=== PATIENT | female | born 1950 | race Caucasian/White ===

== ENCOUNTER 2022-10-28 00:37 | Emergency (ER) | payer BC, SELFPAY ==
[2022-10-28] VITALS (11 sets, daily range): BP systolic 135–160; BP diastolic 72–82; PULSE 76–83; RESP 16–18; TEMP 35.8; O2SAT 98–99; BMI 46.9
--- NOTE | 2022-10-28 00:52 | ED_ITS ---
HPI - General Adult General Chief complaint: Chest Pain Stated complaint: Chest Pain Time Seen by Provider: 10/28/22 00:40 Source: patient Mode of arrival: ambulatory History of Present Illness HPI narrative: 72-year-old female with no prior cardiac history presents to the emergency department with chest pain that started about 1 hour prior to arrival while at rest lying in bed. Substernal area, when she rolled over, it started radiating to the left chest. It is achy in nature and intermittent. There is no shortness of breath, no dizziness, no palpitations. She denies any prior history of similar symptoms but I review records and see that she was evaluated in June of 2020 with similar symptoms. No prior stress testing. There is no family history of premature coronary artery disease but she does have a family history of heart disease at typical ages. She is a nonsmoker. No difficulty breathing. No recent cough or illness. No reflux like symptoms. She is status post cholecystectomy. She cannot reproduce the pain with palpation. Her symptoms did not worsen on exertion. They are somewhat improved now. She does admit to increased stress regarding caring for her disabled son but denies any other recent changes. No new medications. No pertinent travel. No trauma or injury. She did take 1 adult aspirin prior to coming to the ED. She states her past medical history is benign, denies any major long-term health problems. She takes no long-term prescription medications. Sulfa allergy. Socially she is a nonsmoker and denies any alcohol intoxication. Family history notable for heart disease but not premature ages. ROS is notable only for the chest symptoms as described above, otherwise denies times 12 systems. Related Data Home Medications Medication Instructions Recorded Confirmed No Known Home Medications 10/28/22 10/28/22 Allergies Allergy/AdvReac Type Severity Reaction Status Date / Time Sulfa (Sulfonamide Allergy Severe Verified 10/28/22 00:54 Antibiotics) [facility] Surgical History (Updated 10/28/22 @ 01:21 by Leti Flores RN) History of cholecystectomy ?Z90.49 - Acquired absence of other specified parts of digestive tract (ICD- 10) Social History Smoking Status: Never smoker Do you use any of these nicotine containing products: None How often do you have a drink containing alcohol: never AUDIT-C Alcohol total score: 0 Exam Const: Vital Signs, click to edit/add: Vital Signs - 24 hr 10/28/22 00:46 10/28/22 00:50 10/28/22 01:00 Temperature 96.5 F L Pulse Rate 76 81 Pulse Rate [Pulse Oximeter] 83 Respiratory Rate 18 Blood Pressure Blood Pressure [Le ft Forearm] 160/74 H Blood Pressure [Le ft Upper Arm] 160/74 H Pulse Oximetry 98 98 Oxygen Delivery Me thod Room Air 10/28/22 01:01 10/28/22 01:02 10/28/22 01:17 Temperature Pulse Rate 80 77 Pulse Rate [Pulse Oximeter] Respiratory Rate 16 Blood Pressure 142/82 H 140/72 H Blood Pressure [Le ft Forearm] Blood Pressure [Le ft Upper Arm] Pulse Oximetry 99 98 Oxygen Delivery Me thod 10/28/22 01:31 10/28/22 01:46 10/28/22 02:01 Temperature Pulse Rate Pulse Rate [Pulse Oximeter] Respiratory Rate Blood Pressure 144/79 H 139/77 136/76 Blood Pressure [Le ft Forearm] Blood Pressure [Le ft Upper Arm] Pulse Oximetry Oxygen Delivery Me thod 10/28/22 02:16 10/28/22 02:31 Temperature Pulse Rate Pulse Rate [Pulse Oximeter] Respiratory Rate Blood Pressure 135/78 136/76 Blood Pressure [Le ft Forearm] Blood Pressure [Le ft Upper Arm] Pulse Oximetry Oxygen Delivery Me thod Documenting provider has reviewed patient's vital signs: yes Common normals: no apparent distress General appearance: cooperative and well kempt HENMT: Common normals: normocephalic Head and scalp: normocephalic Face and sinus: normal facial exam Mouth: oral and palatal mucosa normal Throat: posterior oropharynx normal Eye: Common normals: conjunctivae normal General eye: normal appearance of both eyes Conjunctiva: conjunctiva(e) normal Neck & C-Spine: Common normals: full ROM and no lymphadenopathy Chest: Common normals: inspection of chest normal and palpation of chest normal Resp: Common normals: normal respiratory effort, no use of accessory muscles and clear to auscultation bilaterally Effort & inspection: able to speak in complete sentences Auscultation: clear to auscultation bilaterally Cardio: Common normals: regular rate, regular rhythm, S1 normal heart sound, S2 normal heart sound and no murmurs Rate: regular rate Rhythm: regular rhythm Heart sounds: S1 normal and S2 normal GI: Common normals: Normal to inspection, nondistended, normoactive bowel sounds present, soft to palpation, non-tender, no hepatosplenomegaly and no masses Palpation: soft and no hepatosplenomegaly Extremity: Common normals: normal to inspection and no pedal edema Psych: Common normals: mental status grossly normal, thought process normal, cooperative and affect normal Appearance: well kempt Thought process: normal thought process Insight: insight good Judgement: judgment good Skin: Common normals: no rashes or lesions noted General skin exam: no rashes or lesions noted Course Vital Signs Vital signs: Initial Vital Signs Temperature 96.5 F L 10/28/22 00:46 Temperature Source Temporal Artery Scan 10/28/22 00:46 Pulse Rate 83 10/28/22 00:46 Respiratory Rate 18 10/28/22 00:46 Blood Pressure 160/74 H 10/28/22 00:46 Blood Pressure Mean 102 10/28/22 00:46 Blood Pressure Position Supine 10/28/22 00:46 Oxygen Delivery Method Room Air 10/28/22 00:46 Vital Signs Temperature 96.5 F L 10/28/22 00:46 Pulse Rate 83 10/28/22 00:46 Respiratory Rate 18 10/28/22 00:46 Blood Pressure 160/74 H 10/28/22 00:46 Oxygen Delivery Method Room Air 10/28/22 00:46 Temperature 96.5 F L 10/28/22 00:46 Pulse Rate 77 10/28/22 01:02 Respiratory Rate 16 10/28/22 01:01 Blood Pressure 136/76 10/28/22 02:31 Pulse Oximetry 98 10/28/22 01:02 Oxygen Delivery Method Room Air 10/28/22 00:46 Medical Decision Making MDM Narrative Medical decision making narrative: Substernal achy chest pain at rest, unlikely to be cardiac in nature. EKG is performed and is reassuring, unchanged from 2020. Recommend chest x-ray, basic blood work, cardiac monitoring and repeat troponin in 90 minutes. Will have been nearly 3 hours from onset at that point. No signs of arrhythmia. If reassuring, can likely be discharged home. Update: Normal findings reviewed with patient. Pain is improved. Repeat troponin also reassuring. All questions answered, recommend conservative management. Keep a symptom diary and follow up with primary care provider in 1- 2 weeks. Reviewed alarm symptoms that would warrant ED presentation. If she continues to have symptoms would recommend outpatient stress test. Lab Data Lab results reviewed: Yes I reviewed the patient's lab results Labs: Lab Results 10/28/22 10/28/22 Range/Units 00:48 02:24 WBC 6.68 (4.50-11.00) K/uL RBC 4.52 (4.00-5.20) m/uL Hgb 13.6 (12.0-16.0) gm/dL Hct 40.4 (33.0-51.0) % MCV 89 (80-100) fL MCH 30 (26-34) pg MCHC 34 (32-36) gm/dL RDW Coeff of [place] 12.7 (11.5-15.5) % Plt Count 258 (140-440) K/uL Neut % (Auto) 47.8 (42.0-72.0) % Lymph % (Auto) 42.4 (20-44) % [place] % (Auto) 7.5 (0.0-11.0) % Eos % (Auto) 1.8 (0.0-7.0) % Baso % (Auto) 0.4 (0.0-3.0) % Neut # (Auto) 3.19 (1.7-7.0) K/uL Lymph # (Auto) 2.83 (0.90-2.90) K/uL [place] # (Auto) 0.50 (0.00-0.90) K/UL Eos # (Auto) 0.12 (0.00-0.50) K/uL Baso # (Auto) 0.03 (0.00-0.30) K/uL Sodium 139 (135-149) mmol/L Potassium 3.7 (3.6-5.1) mmol/L Chloride 102 (96-114) mmol/L Carbon Dioxide 26 (20-32) mmol/L BUN 20 (7-30) mg/dL Creatinine 0.6 (0.5-1.5) mg/dL Estimated Creat Clear 43.30 Estimated GFR 97 ml/min Glucose 106 (60-115) mg/dL Calcium 9.2 (8.4-10.6) mg/dL Troponin I < 0.01 L (0.01-0.04) ng/mL C-Reactive Protein 0.7 (0.5-1.0) mg/dL NT-Pro-B Natriuret Pep 43 pg/mL POC Troponin I 0.01 0.00 L (0.01-0.04) ng/ml Imaging Data Chest x-ray: Attestation: I have reviewed the pertinent imaging results. My impression: Normal chest x-ray Radiologist's impression: IMPRESSION: 1. No acute cardiopulmonary disease is seen. ECG Data Attestation: I personally reviewed and interpreted this ECG as follows: Prior ECG tracings: available for review (Comparison 07/19/2020) Interpretation: Normal sinus rhythm, rate of 82. Normal axis. No significant ST or T-wave abnormalities. Unchanged from 2 years ago. Discharge Plan Discharge Clinical Impression: Chest pain Patient Disposition: Home w/ Parent or Adult Condition: Improved Instructions: Chest Pain (DC) Additional Instructions: There are no signs of any heart attack, blood clot, abnormal heart rhythm or other dangerous etiology today. This is all very good news. As we discussed, I am not certain as to what is causing her chest pain but there does not seem to be any emergent type cause. It is okay to continue Tylenol, using Tylenol p.m. if you cannot sleep. I would like for you to make a follow-up appointment with her primary care doctor in 1-2 weeks. If you are still experiencing symptoms, especially if on exertion, I would recommend that you the 2 of you coordinate a outpatient stress test. You may safely resume all typical activities. Activity Level: No Restrictions Discharge Diet: Regular Prescriptions: No Action No Known Home Medications Stand Alone Forms: [employer] Info Instructions
--- NOTE | 2022-10-28 01:04 | CRLHL7_ITS ---
For Patients: As a result of the Cures Act, medical imaging exams and procedure reports are released immediately into your electronic medical record. You may view this report before your referring provider. If you have questions, please contact your health care provider. INDICATION: Chest pain at rest, sternal TECHNIQUE: Chest radiograph 2 views COMPARISON: None FINDINGS: Mediastinum: The mediastinum is normal in appearance. The heart silhouette is normal in size and morphology. Lung: Both lungs are unremarkable in appearance. No sign of pleural effusion seen. No pneumothorax is identified. Bone and Soft tissue: Unremarkable for age. IMPRESSION: 1. No acute cardiopulmonary disease is seen. Dictated by: Esteban Gaines MD @ 10/28/2022 01:20:46 (Electronically Signed)
[2022-10-28 01:10] LABS: Troponin, Point-of-Care* 0.01 ng/ml (0.01-0.04)
[2022-10-28 01:12] LABS: Basophils Absolute Auto 0.03 K/uL (0.00-0.30); Basophils Percent Auto 0.4 % (0.0-3.0); Eosinophils Absolute Auto 0.12 K/uL (0.00-0.50); Eosinophils Percent Auto 1.8 % (0.0-7.0); Hematocrit 40.4 % (33.0-51.0); Hemoglobin* 13.6 gm/dL (12.0-16.0); Immature Granulocytes Abs Auto 0.01 K/uL (0.00-0.30); Immature Granulocytes Pct Auto 0.1 %; Lymphocytes Absolute Auto 2.83 K/uL (0.90-2.90); Lymphocytes Percent Auto 42.4 % (20-44); Mean Corpuscular HGB Conc 34 gm/dL (32-36); Mean Corpuscular Hemoglobin 30 pg (26-34); Mean Corpuscular Volume 89 fL (80-100); Monocytes Percent Auto 7.5 % (0.0-11.0); Neutrophils Absolute Auto 3.19 K/uL (1.7-7.0); Neutrophils Percent Auto 47.8 % (42.0-72.0); Platelet Count* 258 K/uL (140-440); RDW Coefficient of Variation % 12.7 % (11.5-15.5); Red Blood Count 4.52 m/uL (4.00-5.20); White Blood Count* 6.68 K/uL (4.50-11.00)
[2022-10-28 01:22] LABS: Slide Review Reflex No
[2022-10-28 01:26] LABS: Chloride* 102 mmol/L (96-114); Potassium* 3.7 mmol/L (3.6-5.1); Sodium* 139 mmol/L (135-149)
[2022-10-28 01:28] LABS: Creatinine* 0.6 mg/dL (0.5-1.5); Estimated Glomerular Filt Rate 97 ml/min
[2022-10-28 01:29] LABS: Blood Urea Nitrogen* 20 mg/dL (7-30); Carbon Dioxide* 26 mmol/L (20-32)
[2022-10-28 01:30] LABS: Calcium* 9.2 mg/dL (8.4-10.6); Glucose* 106 mg/dL (60-115)
[2022-10-28 01:32] LABS: C Reactive Protein* 0.7 mg/dL (0.5-1.0)
[2022-10-28 01:43] LABS: NT Pro B Type NatriureticPept* 43 pg/mL; Troponin I* < 0.01 ng/mL (0.01-0.04)
== END 2022-10-28 02:45 | disposition home or self-care (01) ==
PROVIDERS: Emergency Provider Family Medicine; PCP Physician Assistant Medical
DX: R07.9 Chest pain, unspecified (principal)
CPT/HCPCS: 36415; 71046; 80048; 83880; 84484; 85025; 86140; 93005; 99283; 99284; 99285